=== PATIENT | male | born 1945 | race Caucasian/White ===

== ENCOUNTER → 2016-08-11 | Outpatient (CLI) | payer MEDICARE, OTHER ==
--- NOTE | 2016-08-12 07:02 | XR ---
EXAMINATION TYPE: XR lumbosacral spine min 4V , 5 VIEWS DATE OF EXAM ORDERED: 08/11/2016 HISTORY: [id number] LBP. COMPARISON: None. FINDINGS: Vertebral body height and alignment are maintained. There is no spondylolysis or spondylol isthesis. There is diffuse disc space loss, most marked at L5-S1. There is mild hypertrophic spondylo sis in the lower dorsal line. There is mild facet arthropathy in the lower lumbar spine. The pedicles are intact. There is a minimal levoscoliosis. IMPRESSION: 1. NO ACUTE OSSEOUS LESION. 2. MILD DEGENERATIVE CHANGE.
== END | disposition home or self-care (01) ==
LOC: RADXRYALE 15:37
PROVIDERS: ATTEND Physician Assistant Medical
DX: M47.817 Spondylosis without myelopathy or radiculopathy, lumbosacral region (principal)
CPT/HCPCS: 72110

== ENCOUNTER → 2018-10-17 | Outpatient (CLI) | payer MEDICARE, OTHER ==
--- NOTE | 2018-10-17 13:59 | XR ---
EXAMINATION TYPE: XR foot complete LT DATE OF EXAM: 10/17/2018 CLINICAL HISTORY: Left foot pain and swelling after fall TECHNIQUE: Frontal, lateral, and oblique images of the left foot are obtained. COMPARISON: None FINDINGS: There is no acute fracture/dislocation evident in the left foot. Flexion deformity is seen of the fourth distal interphalangeal joint with some sclerosis. Degenerative changes are seen of the first metatarsal phalangeal joint with opposing surface sclerosis and marginal osteophytes. The ck ining joint spaces in the left foot appear within normal limits. The overlying soft tissue appears u nremarkable. Small vessel atherosclerosis is noted. IMPRESSION: Sclerosis and flexion deformity of the fifth fourth distal interphalangeal joint is presu med to be chronic. Correlate with point tenderness. Within the remainder of the left foot no acute fr acture is seen.
== END | disposition home or self-care (01) ==
LOC: RADXRYALE 13:30
PROVIDERS: ATTEND Physician Assistant Medical
DX: M89.8X7 Other specified disorders of bone, ankle and foot (principal); S99.922A Unspecified injury of left foot, initial encounter